=== PATIENT | male | born 1985 | race Hispanic/Latino ===

== ENCOUNTER 2024-07-06 20:13 | Emergency (ER) | payer SELFPAY ==
[~2024-07-06] VITALS: Ht 172.7 cm; Wt 82.1 kg
[2024-07-06] MEDS: LIDOCAINE HCL 1% 20 ML VIAL INJ ONE (20:39)
[2024-07-06] MEDS: teTANUS/diphthERIA TOXOID [ADULT] 0.5 ML VIAL IM ONE (20:42)
--- NOTE | 2024-07-06 20:52 | HMCIMG ---
LEFT SECOND FINGER RADIOGRAPHS - 3 VIEWS INDICATION: Pain COMPARISON: None FINDINGS/IMPRESSION: AP, lateral, and oblique views. 6 mm aggregate of cortical fracture fragments along the volar side of the second distal phalanx on the lateral view, without joint subluxation or retained foreign body.
--- NOTE | 2024-07-06 20:53 | NUR ---
PT PRESENTS TO ER WITH LAC TO DISTAL END OF LEFT INDEX FINGER PA ATTEMPTED TO REPAIR FINGER HOWEVER PT REFUSED AID EVEN AFTER REPEATED ATTEMPTS BY PROVIDER TO EXPLAIN THE NEED
[2024-07-06] MEDS: ceFAZolin SODIUM 1 GM VIAL IM SCH (21:00)
--- NOTE | 2024-07-06 21:15 | ERN ---
General Chief Complaint: Laceration/Avulsion Stated Complaint: LACERATION TO THE LEFT POINTER FINGER Time Seen by MD: 20:18 Time Seen by Midlevel: 20:18 Source: patient History of Present Illness Initial Comments Patient is a 39-year-old male presenting to the emergency department after sustaining a laceration to his left pointer finger. Patient states he was using a saw when he accidentally cut the tip of his left finger. Denies being up-to-date with his tetanus vaccination. Denies any other concerns. Allergies: Coded Allergies: No Known Drug Allergies (Unverified Allergy, Unknown, 07/06/24) Home Meds Active Scripts Amoxicillin/Potassium Clav (Amox Tr-K Clv 875-125 mg Tab) 875 Mg-125 Mg Tablet, 1 EACH PO BID for 7 Days, #14 TAB 0 Refills Prov:JORDON COBOS 07/06/24 Ketorolac Tromethamine (Ketorolac Tromethamine) 10 Mg Tablet, 1 TAB PO TID for pain for 5 Days, #15 TAB 0 Refills Prov:JORDON COBOS 07/06/24 Past Medical History Past Medical History: No Pertinent History Past Surgical History: None ROS Dictation CONSTITUTIONAL: Negative except for HPI HEAD/FACE: Negative except for HPI EENT: Negative except for HPI RESPIRATORY: Negative except for HPI GASTROINTESTINAL/ABDOMINAL: Negative except for HPI GENITOURINARY: Negative except for HPI MUSCULOSKELETAL: Negative except for HPI INTEGUMENTARY: Negative except for HPI NEUROLOGICAL/PSYCH: Negative except for HPI HEMATOLOGIC/LYMPHATIC: Negative except for HPI All Systems Negative, Except as noted above. 13 point review of systems assessed and all negative except for above. Physical Exam Physical Exam Dictation PHYSICAL EXAM: GENERAL: alert,, awake oriented x 3 HEENT: EOMI, Sclera non icteric, moist mucosa NECK: Supple, no JVD, trachea midline LUNGS: Clear breath sounds bilaterally. No wheezes HEART: Regular rate and rhythm. Normal S1 and S2, without murmurs ABD: Abdomen soft, nontender. Bowel sounds present EXT: 1 cm linear laceration to the distal aspect of the left 2nd digit, minimal active bleeding, range of motion and sensation intact, normal capillary refill NEURO: Alert and oriented to person, follows commands MDM MDM: Patient is a 39-year-old male presenting to the emergency department after sustaining a laceration to his left pointer finger. Patient states he was using a saw when he accidentally cut the tip of his left finger. Denies being up-to-date with his tetanus vaccination. Denies any other concerns. On physical examination the patient has a 1 cm linear laceration to the distal aspect of the left 2nd digit, minimal active bleeding, range of motion and sensation intact, normal capillary refill. A left finger x-ray was obtained which shows a 6 mm aggregate cortical fracture fragments along the volar aspect of the 2nd distal phalanx of the lateral view. There was no joint subluxation or retained foreign body. The wound was thoroughly cleansed with iodine and wound cleanser. The patient was administered 1 g of Ancef and a tetanus vaccination. The laceration was successfully repaired with five simple interrupted sutures. Wound care instructions were provided. Patient will be discharged with close return precautions. Differential diagnosis: Tendon laceration, open fracture, contusion, There are no social concerns with this patient. Prescription drug management Prescriptions will include: Augmentin Medical management and examination interpretation discussions were had by me with other qualified healthcare professionals as indicated for the patient's care. ED Course Orders Procedure Category Date Status Time Lidocaine Hcl 1% 20ml PHA 07/06/24 Complete Vial (Lidocaine Hc 20:30 Laceration Tray Set CPOE 07/06/24 Transmitted Up (Er) 20:18 Finger(S) 2+Vws Lt RAD 07/06/24 Resulted 20:20 Tetanus,Diphtheria PHA 07/06/24 Complete Tox [Adult] (Diphther 20:30 Cefazolin Sodium 1 Gm PHA 07/06/24 Complete Vial (Ancef 1 Gm V 21:00 Hydrocodone/Apap PHA 07/06/24 Complete 5/325 ([place] 5/325mg) 21:30 Current Medications Medications (Trade) Dose Ordered Sig/Isrrael Route PRN Reason Start Time Stop Time Status Last Admin Dose Admin Acetaminophen/ Hydrocodone Bitart (NORco 5/325MG) 1 tab ONCE ONCE PO 07/06/24 21:30 07/06/24 21:31 DC 07/06/24 22:35 Cefazolin Sodium (ANCEF 1 gm vial) 1 gm Q8H IM 07/06/24 21:00 07/06/24 23:37 DC 07/06/24 21:00 Lidocaine HCl (Lidocaine HCl 1% 20ml Vial) ONCE ONCE INJ 07/06/24 20:30 07/06/24 20:31 DC 07/06/24 20:39 Tetanus/ Diphtheria Toxoids Adsorbed (DiphthERIA-teTANUS TOXOID [ADULT]/ DECAVAC) 0.5 ml ONCE ONCE IM 07/06/24 20:30 07/06/24 20:31 DC 07/06/24 20:42 Vital Signs Date Time Temp Pulse Resp B/P (MAP) Pulse Ox O2 Delivery O2 Flow Rate FiO2 07/06/24 22:51 98.1 90 16 125/75 98 Room Air* 0 21 07/06/24 20:49 98.2 95 16 120/80 99 Room Air* 0 21 07/06/24 20:16 98.8 99 19 127/83 99 Room Air [address] [address] IMAGING REPORT Signed PATIENT: PILO WHALEY MR#: [id number] : 1985 SEX: M AGE: 39 LOCATION: [facility] ORDER 20 STATUS: REG ER REPORT#: [id number] SERVICE 19 REASON: laceration r/o fx ORDERING PHYSICIAN: JORDON COBOS PROCEDURE: FINGER LT - FINGER(S) 2+VWS LT LEFT SECOND FINGER RADIOGRAPHS - 3 VIEWS INDICATION: Pain COMPARISON: None FINDINGS/IMPRESSION: AP, lateral, and oblique views. 6 mm aggregate of cortical fracture fragments along the volar side of the second distal phalanx on the lateral view, without joint subluxation or retained foreign body. DICTATED BY: ROSE MARY MULLIGAN MD DATE: 07/06/242036 ELECTRONICALLY SIGNED BY: ROSE MARY MULLIGAN MD DATE: 07/06/242051 Procedure Dictation Procedure Name: Laceration Repair Indication: Reduce risk of infection Location: 1 cm linear laceration to the 2nd distal phalanx of the left hand Pre-Procedure Diagnosis: Laceration Post-Procedure Diagnosis: Repaired Laceration Informed consent was obtained before procedure started. PROCEDURE: The appropriate timeout was taken. The area was prepped and draped in the usual sterile fashion. Local anesthesia was achieved using 2cc of Lidocaine 1% without epinephrine. The wound was copiously irrigated. 5 4-0 Ethilon simple interrupted sutures were placed. Estimated blood loss was less than 0.5 mL. A dressing was applied to the area and anticipatory guidance, as well as standard post-procedure care, was explained. Return precautions are given. The patient tolerated the procedure well without complications. Follow-up visit set for suture removal and evaluation of the laceration. DX & DISP Disposition: Discharge Departure Impression: Primary Impression: Laceration of finger, left Additional Impression: Fracture of distal phalanx of finger of left hand Condition: Stable Scripts Amoxicillin/Potassium Clav (Amox Tr-K Clv 875-125 mg Tab) 875 Mg-125 Mg Tablet 1 EACH PO BID for 7 Days, #14 TAB 0 Refills Prov: JORDON COBOS 07/06/24 Ketorolac Tromethamine (Ketorolac Tromethamine) 10 Mg Tablet 1 TAB PO TID for pain for 5 Days, #15 TAB 0 Refills Prov: JORDON COBOS 07/06/24 Additional Instructions: Your laceration was successfully repaired with five sutures. These will need to be removed in seven days. If you notice any signs of infection please report to the ER for further evaluation. You do have an underlying fracture of that finger. Please follow up with invoicing specialist for further evaluation. Referrals: SELF,REFERRAL (PCP) LEIF WEINER MD Time of Disposition: 22:55 I have reviewed the case, and I agree with, Diagnosis and Plan I performed the substantive portion of the visit. I have reviewed and personally made and approve the management plan that is documented in the note by myself or the KAYLA. I acknowledge for responsibility for the patient's management plan. JORDON COBOS Jul 06, 2024 21:15
[2024-07-06] MEDS: HYDROcodone/APAP 5/325 1 TAB TABLET PO ONE (22:35)
[2024-07-06 22:51] VITALS: BP 125/75; PULSE 90; RESP 16; TEMP 98.1; O2SAT 98
[2024-07-06] MEDS ORDERED: KETO10TA2 PO (22:55)
[2024-07-06] MEDS ORDERED: AMOX1TAB16 PO (22:55)
--- NOTE | 2024-07-06 23:33 | NUR ---
PA PLACED SUTURES TO DISTAL INDEX FINGER RIGHT HAND PT PROVIDED SCRIPTS AND INFORMED NESSISARY CLEANING PROCESS PT INFORMED OF ORTHO REFERAL AND PROVIDED FOLLOW UP INFORMATION
== END 2024-07-06 23:20 | disposition home or self-care (01) ==
LOC: EDH 20:13
DX: S61.211A Laceration without foreign body of left index finger without damage to nail, initial encounter (principal); S62.631A Displaced fracture of distal phalanx of left index finger, initial encounter for closed fracture; Z79.899 Other long term (current) drug therapy; W27.0XXA Contact with workbench tool, initial encounter; Y93.89 Activity, other specified; Y92.89 Other specified places as the place of occurrence of the external cause; Y99.8 Other external cause status
CPT/HCPCS: 99284; 90714; 73140; 90471; 12001; 96372; J0690